=== PATIENT | male | born 1985 | race Hispanic/Latino ===

== ENCOUNTER 2022-10-16 13:40 | Emergency (ER) | payer BC ==
[2022-10-16 13:47] VITALS: BP 123/75; PULSE 109; O2SAT 97
--- NOTE | 2022-10-16 14:16 | XRAY ---
Indication: Laceration with car window. 3 view left hand demonstrates 3 mm scaphoid bone cyst. No other bony, articular, or soft tissue abnormalities.
--- NOTE | 2022-10-16 14:32 | ERPHSYRPT ---
- History of Present Illness Time Seen by Provider: 10/16/22 13:47 Source: patient Exam Limitations: no limitations Patient Subjective Stated Complaint: PD states "he needs med clearance for his hands.". PT stated "I was trying to get into a car and cut my hands on glass." Triage Nursing Assessment: PT presented alert and oriented X 3, skin pwd. Pt ambulates with an upright steady gaie, able to speak in clear full sentences pt has lacerations to right lateral hand. Pt has laceeration noted to left lateral hand as well. Physician History: Patient is here with left hand injury. Patient states he was attempting to enter a vehicle yesterday. States that he hit his hand against the glass. Patient now has abrasions, left hand tenderness. Patient has abrasions over his right hand. Patient states he is up-to-date on his vaccinations. Timing/Duration: yesterday Severity: mild Allergies/Adverse Reactions: No Known Drug Allergies Allergy (Verified 10/16/22 13:47) Home Medications: Escitalopram Oxalate [Lexapro] 10 mg PO DAILY 10/16/22 [History] Prazosin HCl 5 mg PO DAILY 10/16/22 [History] hydrOXYzine pamoate [Vistaril] 50 mg PO DAILY 10/16/22 [History] Hx Tetanus, Diphtheria Vaccination/Date Given: Yes Hx Influenza Vaccination/Date Given: Yes Hx Pneumococcal Vaccination/Date Given: No Immunizations Up to Date: Yes Travel Risk - International Travel Have you traveled outside of the country in past 3 weeks: No - Coronavirus Screening Are you exhibiting any of the following symptoms?: No Close contact with a COVID-19 positive Pt in past 14-21 Days: No - Vaccine Status Have you recieved a Covid-19 vaccination: Yes Gardening Manager: [employer] - Vaccination Dates Date of 2cond Vaccination (if applicable): 2020 - Review of Systems Constitutional: No Fever, No Chills Eyes: No Symptoms Ears, Nose, & Throat: No Symptoms Respiratory: No Cough, No Dyspnea Cardiac: No Chest Pain, No Edema, No Syncope Abdominal/Gastrointestinal: No Abdominal Pain, No Nausea, No Vomiting, No Diarrhea Genitourinary Symptoms: No Dysuria Musculoskeletal: Other (Left hand injury), No Back Pain, No Neck Pain Skin: No Rash Neurological: No Dizziness, No Focal Weakness, No Sensory Changes Psychological: No Symptoms Endocrine: No Symptoms All Other Systems: Reviewed and Negative - Past Medical History Pertinent Past Medical History: Yes Psycho-Social History: Anxiety, Depression - Past Surgical History Past Surgical History: No - Social History Smoking Status: Current every day smoker Exposure to second hand smoke: Yes Drug Use: none Patient Lives Alone: No - Nursing Vital Signs Nursing Vital Signs: Initial Vital Signs Temperature 99.1 F 10/16/22 13:41 Pulse Rate 109 H 10/16/22 13:41 Respiratory Rate 20 10/16/22 13:41 Blood Pressure 123/75 10/16/22 13:41 O2 Sat by Pulse Oximetry 97 10/16/22 13:41 Pain Scale Pain Intensity 4 - Physical Exam General Appearance: no apparent distress Eye Exam: PERRL/EOMI, eyes nml inspection Ears, Nose, Throat Exam: normal ENT inspection, TMs normal, pharynx normal, moist mucous membranes Neck Exam: normal inspection, non-tender, supple, full range of motion Respiratory Exam: normal breath sounds, lungs clear, No respiratory distress Cardiovascular Exam: regular rate/rhythm, normal heart sounds, normal peripheral pulses Gastrointestinal/Abdomen Exam: soft, normal bowel sounds, No tenderness, No mass Back Exam: normal inspection, normal range of motion, No CVA tenderness, No vertebral tenderness Extremity Exam: normal inspection, normal range of motion, pelvis stable Neurologic Exam: alert, oriented x 3, cooperative, normal mood/affect, nml cerebellar function, nml station & gait, sensation nml, No motor deficits Skin Exam: normal color, warm, dry, No rash Lymphatic Exam: No adenopathy SpO2: 97 Comments: 10/16/22 14:41 Patient here with right and left hand abrasions. Minimal laceration to the left fifth MCP. 0.5 cm. It is greater than 24 hours old. Fully explored, no signs of tendon involvement. No obvious deformity, sensation intact, 2+ capillary refill, 2 point tactile discrimination intact. 5 out of 5 strength. Full range of motion without pain. Compartments are soft, nontender. Overlying skin shows no tenting, bruising, ecchymosis. - Course Nursing assessment & vital signs reviewed: Yes Ordered Tests: Active Orders 24 hr Category Date Time Status HAND (MINIMUM 3 VIEWS) Stat Exams 10/16/22 13:57 Completed - Progress Progress: improved Progress Note: 10/16/22 14:41 X-ray demonstrates no fracture my read. We did discuss possible laceration repair. However given that it is greater than 24 hours old we will not repair today. Patient will need close follow-up with PCP. The rest of the wounds were cleaned wrapped and dressed. Patient will follow-up with PCP in 1 to 2 weeks. Otherwise return here for new or changing symptoms. Patient is being discharged into custody. - Departure Departure Disposition: Home Clinical Impression: Hand injury, Abrasion of hand, left Condition: Stable Critical Care Time: No Instructions: Hand Pain (DC)
== END 2022-10-16 14:51 ==
LOC: ED 13:40
DX: S61.217A Laceration without foreign body of left little finger without damage to nail, initial encounter (principal); S60.512A Abrasion of left hand, initial encounter; W25.XXXA Contact with sharp glass, initial encounter; Z79.899 Other long term (current) drug therapy; Z72.0 Tobacco use
CPT/HCPCS: 73130; 99282